=== PATIENT | male | born 1950 | race Caucasian/White ===

== ENCOUNTER 2016-08-20 16:17 | Emergency (ER) | payer OTHER ==
[~2016-08-20] VITALS: Ht 180.3 cm; Wt 99.8 kg
[2016-08-20] MEDS ORDERED: CRESTOR40 MG PO (16:29)
[2016-08-20] MEDS ORDERED: ASPIRIN325 MG PO (16:30)
--- NOTE | 2016-08-21 19:50 | EKG ---
[facility] [address] [facility] [place] [address] Signed Normal sinus rhythm Right bundle branch block Left anterior fascicular block Bifascicular block Abnormal ECG No previous ECGs available Confirmed by KIMBERLY GARCIA MD ([id number] on 08/21/2016 7:49:58 PM Electronically Signed By: KIMBERLY GARCIA MD 08/21/16 1950 PATIENT NAME: DEE HEADLEY Electrocardiogram DATE OF : 54 PHYSICIAN: KIMBERLY GARCIA MD REPORT #: [id number] REPORT IS CONFIDENTIAL AND NOT TO BE RELEASED WITHOUT AUTHORIZATION
== END 2016-08-20 19:48 | disposition home or self-care (01) ==
LOC: ED 16:17
DX: G45.9 Transient cerebral ischemic attack, unspecified (principal); E78.5 Hyperlipidemia, unspecified; Z87.442 Personal history of urinary calculi; Z79.82 Long term (current) use of aspirin; Z79.899 Other long term (current) drug therapy
CPT/HCPCS: 70450; 80053; 84484; 85025; 93005; 93010; 93880; 99284